=== PATIENT | female | born 1955 | race Caucasian/White ===

== ENCOUNTER → 2016-10-10 | Outpatient (CLI) | payer OTHER | LOC: FIMAGING 15:17 | PROVIDERS: ATTEND Orthopaedic Surgery | DX: M25.562 Pain in left knee (principal); M76.52 Patellar tendinitis, left knee; M25.462 Effusion, left knee ==

== ENCOUNTER → 2017-01-20 | Outpatient (CLI) | payer OTHER | LOC: FIMAGING 12:58 | PROVIDERS: ATTEND Family Medicine | DX: Z12.31 Encounter for screening mammogram for malignant neoplasm of breast (principal) | CPT/HCPCS: G0202 ==

== ENCOUNTER → 2017-03-09 | Outpatient (CLI) | payer OTHER | LOC: FIMAGING 08:09 | PROVIDERS: ATTEND Orthopaedic Surgery | DX: M17.9 Osteoarthritis of knee, unspecified (principal); M22.42 Chondromalacia patellae, left knee; M76.52 Patellar tendinitis, left knee ==

== ENCOUNTER 2017-04-10 06:00 | Day surgery (SDC) | payer OTHER ==
[~2017-04-10 06:00] MED LIST: ceFAZolin 2 GM/DEXTROSE 100 ML IV ONE
[2017-04-10] MEDS ORDERED: LR 1,000 ML IV ONE (06:18)
[2017-04-10] MEDS ORDERED: LIDOCAINE 1% 2 ML INJ ID PRN (06:18)
[2017-04-10] MEDS ORDERED: ceFAZolin 2 GM in D5W 100 ML IV ONE (06:30)
--- NOTE | 2017-04-10 06:41 | PDANEPAE ---
ANE History of Present Illness 61 yo female for knee arthroscopy. ANE Past Medical History - Cardiovascular History Hx Hypertension: No Hx Arrhythmias: No Hx Chest Pain: No Hx Coronary Artery / Peripheral Vascular Disease: No Hx CHF / Valvular Disease: No Hx Palpitations: No - Pulmonary History Hx COPD: No Hx Asthma/Reactive Airway Disease: No Hx Recent Upper Respiratory Infection: No Hx Oxygen in Use at Home: No Hx Sleep Apnea: No Sleep Apnea Screening Result - Last Documented: Negative - Neurologic History Hx Cerebrovascular Accident: No Hx Seizures: No Hx Dementia: No - Endocrine History Hx Diabetes: No Hypothyroid: No Obesity: no - Renal History Hx Renal Disorders: No - Liver History Hx Hepatic Disorders: No - Neurological & Psychiatric Hx Hx Neurological and Psychiatric Disorders: No - Cancer History Hx Cancer: No - Congenital Disorder History Hx Congenital Disorders: No - GI History Hx Gastrointestinal Disorders: No - Other Health History Other Health History: NONE - Chronic Pain History Chronic Pain: No - Surgical History Prior Surgeries: NONE ANE Review of Systems Review of systems is: negative Review of Systems: - Exercise capacity METS (RN): 4 METS - Systems Constitutional: Reports: no symptoms Cardiac: Reports: no symptoms Respiratory: Reports: no symptoms ANE Patient History - Allergies Allergies/Adverse Reactions: No Known Allergies Allergy (Verified 04/04/17 11:46) - Home Medications Home medications: home medication list seen and reviewed Home Medications: Estrogel 04/10/17 [Last Taken 04/03/17] Fish Oil 1,000 mg Capsule DAILY 04/10/17 [Last Taken 04/03/17] Progesterone,Micronized [Prometrium] 100 mg PO DAILY 04/10/17 [Last Taken ] - NPO status NPO Status: no food or drink >8 hours - Anes Hx Anes Hx: no prior problems - Smoking Hx Smoking Status: Never smoked Marijuana use: No - Alcohol Use Alcohol Use: Rarely (4/week) - Family Anes Hx Family Anes Hx: neg - N/A Family Hx Anesthesia Complications: NONE ANE Labs/Vital Signs - Vital Signs Vital Signs: reviewed preoperatively; see RN documention for details Height: 160.02 cm Weight: 65.771 kg ANE Physical Exam - Airway Neck exam: FROM Mallampati Score: Class 2 Mouth exam: normal dental/mouth exam - Pulmonary Pulmonary: clear to auscultation - Cardiovascular Cardiovascular: regular rate and rhythym - ASA Status ASA Status: II ANE Anesthesia Plan Anesthesia Plan: GA w LMA Urgent/Emergent Case: Anes eval completed preop but documented later for safe timely pt care (This was not an urgent/emergent case, but [employer] issues prevented documentation prior to case start. IT had to get involved to enable documebntation to be completed.)
--- NOTE | 2017-04-10 07:06 | PDHPUP ---
History & Physical Update H&P update statement: This history and physical update is based on an assessment of the patient which was completed after admission or registration (within 24 hours), but prior to the surgery/procedure. H&P update: H&P reviewed & patient examined, no change in patient's condition since H&P completed
[2017-04-10] MEDS ORDERED: BUPIVACAINE/EPI 0.5% 30 ML SDV ONE (07:35)
[2017-04-10] MEDS ORDERED: fentaNYL 100 MCG/2 ML INJ ONE ×2 (08:03→09:59)
[2017-04-10] MEDS ORDERED: LIDOCAINE 2% 5 ML SDV ONE (08:04)
[2017-04-10] MEDS ORDERED: PROPOFOL/EMULSION 500 MG/50 ML BOTTLE IV ONE (08:04)
[2017-04-10] MEDS ORDERED: DEXAMETHASONE 4 MG/ML VIAL ONE (08:04)
[2017-04-10] MEDS ORDERED: CALCIUM CHLORIDE 1 GM/10 ML INJ ONE (08:13)
[2017-04-10] MEDS ORDERED: ONDANSETRON 4 MG/2 ML VIAL ONE (08:42)
[2017-04-10] MEDS ORDERED: KETOROLAC 30 MG/1 ML SDV ONE (08:59)
[2017-04-10] MEDS ORDERED: HYDROCODONE/APAP 5/325 TAB PO PRN (09:17)
[2017-04-10] MEDS ORDERED: LR 500 ML IV PRN (09:17)
[2017-04-10] MEDS ORDERED: PROMETHAZINE HCL 25 MG/ML INJ IVP PRN (09:17)
[2017-04-10] MEDS ORDERED: NALOXONE HCL 0.4 MG/ML INJ IVP PRN (09:17)
[2017-04-10] MEDS ORDERED: ALBUTEROL 3 ML DEYVIAL IH PRN (09:17)
[2017-04-10] MEDS ORDERED: ACETAMINOPHEN 500 MG TAB PO PRN (09:17)
[2017-04-10] MEDS ORDERED: ONDANSETRON 4 MG/2 ML VIAL IVP PRN (09:47)
[2017-04-10] MEDS ORDERED: ONDANSETRON DISINTEGRATING 4 MG TAB PO PRN (09:47)
[2017-04-10] MEDS ORDERED: OXYCODONE/APAP 5/325 TAB PO PRN (09:47)
--- NOTE | 2017-04-10 09:50 | POSTOPPROG ---
Post Op Note Date of Operation: 04/10/17 Surgeon: Paula Tan Business Administrator: Jaimie Nolen Anesthesiologist: Dr. Rand Anesthesia: GET(General Endotracheal) Pre-op Diagnosis: left knee pain Post-op Diagnosis: left knee pain Indication: left knee pain Procedure: left knee arthroscopy, debridement, patellar tendon debridement, PRP inject Inf/Abcess present in the surg proc area at time of surgery?: No EBL: Minimal Complications: none
--- NOTE | 2017-04-10 09:51 | SOAPPROG ---
SOAP Progress Note Assessment/Plan: Assessment/Plan: 61y/o female s/p left knee arthroscopy, debridement, PRP injection - stable and doing well - orders as written - home when PACU criteria met - call with issues or concerns 04/10/17 09:50 Subjective: Minimal pain, doing well Objective: Vital Signs Temp Pulse Resp BP Pulse Ox 36.4 C 67 16 116/80 97 04/10/17 06:30 04/10/17 06:30 04/10/17 06:30 04/10/17 06:30 04/10/17 06:30 NAD, waking from anesthesia VSS, EOMi, face symmetric MAEx4 incisions CDI ICD10 Worksheet Patient Problems: Problems Problem Status Onset Knee pain Acute - ICD10 Problem Qualifiers (1) Knee pain
[2017-04-10] MEDS: fentaNYL 100 MCG/2 ML INJ IVP PRN ×2 (10:02→10:17)
[2017-04-10] MEDS ORDERED: HYDROCODONE/APAP 5/325 TAB ONE ×2 (10:31→10:33)
[2017-04-10 10:53] VITALS: TEMP 96.8
[2017-04-10 11:15] VITALS: BP 129/79; PULSE 60; RESP 14; O2SAT 98
--- NOTE | 2017-04-10 11:26 | GOP ---
[f rep st] OPERATIVE REPORT DATE OF OPERATION: 04/10/2017 SURGEON: Paula Tan MD CENTER REP: Carlota Nolen, ALICIA. ANESTHESIA: General. 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 POSTOPERATIVE DIAGNOSIS: Chronic patellar tendinitis with inflammation of Hoffa fat pad and patellof emoral syndrome, left knee. PROCEDURE PERFORMED: Arthroscopy and extensive synovectomy with chondroplasty of patella and debride ment of Hoffa fat pad, arthrotomy with debridement of patellar tendon and PRP injection, left knee. FINDINGS: ESTIMATED BLOOD LOSS: Minimal. 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 The there wa s a small area of full-thickness cartilage loss. There was significant fibrillation of the articular cartilage on the inferior portion of the patella. The mid and superior portion of the patella were normal in appearance. There are also some cracks in the trochlear groove but there was good cartilag e covering of the trochlea. The medial compartment was entered and the medial meniscus was normal. The articular cartilage in the medial compartment was normal. The patient did have an old stretch in jury of the ACL with some attenuation of the fibers. There was a fair amount of the tendon which was intact. The lateral compartment was visualized and the patient had normal lateral meniscus. There was grade 2 chondromalacia of the lateral tibial plateau. Articular cartilage on the lateral femoral condyle was normal. There was significant inflammation in the Hoffa fat pad and extensive debrideme nt and synovectomy of the anterior aspect of the knee was performed. Chondroplasty of the inferior pole of the patella was also performed using the shaver and the Vapr wa nd. Once the fat pad had been adequately debrided, the instrumentation was removed from the knee and a midline incision was made extending from the inferior pole of the patella distally for 4 cm. Inci nic was carried down through the subcutaneous tissue to the patellar tendon. The peritenon was spli t in the midline and retracted and then the patellar tendon was split in the midline. Area of mucino us degeneration was found on the lateral half of the patellar tendon. A strip measuring approximatel y 4-5 mm in width was removed and the underlying fat pad was further debrided. Once the tendon was a dequately debrided, the defect in the tendon was closed using 0 Vicryl followed by 2-0 Vicryl in the peritenon. Platelet gel was injected into the defect in the patellar tendon. The subcutaneous tissu e was then closed using 2-0 Vicryl followed by 4-0 Vicryl in the skin. The portals were closed using 4-0 nylon. The patient tolerated the procedure well. There were no complications. Estimated blood loss minimal . Final sponge, needle counts were correct. The patient was transferred to the recovery room in goo d condition. SURGEON: Paula Tan MD. /[id number]/MODL
== END 2017-04-10 12:10 | disposition home or self-care (01) ==
LOC: FSGY 06:00
PROVIDERS: ATTEND Orthopaedic Surgery
DX: M22.42 Chondromalacia patellae, left knee (principal); M76.52 Patellar tendinitis, left knee; M23.8X2 Other internal derangements of left knee; M22.3X2 Other derangements of patella, left knee
CPT/HCPCS: J0690; J1100; J1885; J2405; J2704; J3010

== ENCOUNTER → 2017-11-18 | Outpatient (CLI) | payer OTHER | LOC: BMCIMAGING 10:50 | PROVIDERS: ATTEND Podiatrist Foot & Ankle Surgery | DX: M79.671 Pain in right foot (principal) ==

== ENCOUNTER 2017-12-26 07:35 | Day surgery (SDC) | payer OTHER ==
[2017-12-26] MEDS ORDERED: LR 1,000 ML IV ONE (08:00)
[2017-12-26] MEDS ORDERED: ceFAZolin 2 GM/DEXTROSE 100 ML IV ONE (08:46)
[2017-12-26] MEDS ORDERED: MIDAZOLAM 2 MG/2 ML VIAL IVP ONE (08:46)
[2017-12-26] MEDS ORDERED: BUPIVACAINE 0.25% 30 ML SDV ONE (08:51)
[2017-12-26] MEDS ORDERED: BUPIVACAINE 0.75% 10 ML SDV ONE (08:51)
[2017-12-26] MEDS ORDERED: ceFAZolin 1 GM/5 ML SYR ONE (08:52)
[2017-12-26] MEDS ORDERED: LIDOCAINE 2% 5 ML SDV ONE (08:52)
--- NOTE | 2017-12-26 09:01 | PDANEPAE ---
ANE History of Present Illness removal of ganglion cyst ANE Past Medical History - Cardiovascular History Hx Hypertension: No Hx Arrhythmias: No Hx Chest Pain: No Hx Coronary Artery / Peripheral Vascular Disease: No Hx CHF / Valvular Disease: No Hx Palpitations: No - Pulmonary History Hx COPD: No Hx Asthma/Reactive Airway Disease: No Hx Recent Upper Respiratory Infection: No Hx Oxygen in Use at Home: No Hx Sleep Apnea: No Sleep Apnea Screening Result - Last Documented: Negative - Neurologic History Hx Cerebrovascular Accident: No Hx Seizures: No Hx Dementia: No - Endocrine History Hx Diabetes: No - Renal History Hx Renal Disorders: No - Liver History Hx Hepatic Disorders: No - Neurological & Psychiatric Hx Hx Neurological and Psychiatric Disorders: No - Cancer History Hx Cancer: No - Congenital Disorder History Hx Congenital Disorders: No - GI History Hx Gastrointestinal Disorders: No - Other Health History Other Health History: NONE - Chronic Pain History Chronic Pain: No - Surgical History Prior Surgeries: L KNEE SCOPE X2 ARTHROSTOMY & ARTHROTOMY ANE Review of Systems Review of Systems: - Exercise capacity Exercise capacity: >=4 METS METS (RN): 5 METS ANE Patient History - Allergies Allergies/Adverse Reactions: No Known Allergies Allergy (Verified 04/04/17 11:46) - Home Medications Home medications: home medication list seen and reviewed Home Medications: Fish Oil 1,000 mg Capsule DAILY 04/10/17 [Last Taken 1 Week Ago ~12/19/17] Escitalopram Oxalate 12/17/17 [Last Taken 12/25/17] - NPO status NPO Status: no food or drink >8 hours NPO Since - Liquids (Date): 12/26/17 NPO Since - Liquids (Time): 01:00 NPO Since - Solids (Date): 12/25/17 NPO Since - Solids (Time): 20:30 - Anes Hx Anes Hx: no prior problems - Smoking Hx Smoking Status: Never smoked - Family Anes Hx Family Hx Anesthesia Complications: NONE ANE Labs/Vital Signs - Vital Signs Blood Pressure: 109/85 Heart Rate: 59 Respiratory Rate: 18 O2 Sat (%): 96 Height: 160.02 cm Weight: 65.771 kg ANE Physical Exam - Airway Mallampati Score: Class 2 Mouth exam: normal dental/mouth exam - Pulmonary Pulmonary: no respiratory distress - Cardiovascular Cardiovascular: regular rate and rhythym - ASA Status ASA Status: I ANE Anesthesia Plan Anesthesia Plan: GA with mask, MAC
[2017-12-26] MEDS ORDERED: PROPOFOL/EMULSION 500 MG/50 ML BOTTLE IV ONE (09:04)
[2017-12-26] MEDS ORDERED: OXYCODONE/APAP 5/325 TAB PO PRN (09:50)
[2017-12-26] MEDS ORDERED: NALOXONE HCL 0.4 MG/ML INJ IVP PRN (09:58)
[2017-12-26] MEDS ORDERED: ONDANSETRON 4 MG/2 ML VIAL IVP PRN (09:58)
[2017-12-26] MEDS ORDERED: LR 500 ML IV PRN (09:58)
[2017-12-26] MEDS ORDERED: fentaNYL 100 MCG/2 ML INJ IVP PRN (09:58)
[2017-12-26] MEDS ORDERED: ALBUTEROL 3 ML DEYVIAL IH PRN (09:58)
[2017-12-26] MEDS ORDERED: HYDROCODONE/APAP 5/325 TAB PO PRN (09:58)
--- NOTE | 2017-12-26 09:58 | POSTOPPROG ---
Post Op Note Date of Operation: 12/26/17 Surgeon: Crista Conley Anesthesiologist: Dr. Mabry Anesthesia: IV Sedation Pre-op Diagnosis: Right foot ganglion cyst Post-op Diagnosis: Right foot ganglion cyst Indication: Painful ganglion cyst right foot Procedure: Right foot excision of ganglion cyst Findings: Gelatinous fluid expressed from the ganglion cyst Inf/Abcess present in the surg proc area at time of surgery?: No Depth: Superfical (Skin SQ) EBL: PAT @225 mmHg 15 minutes Complications: None
--- NOTE | 2017-12-26 09:59 | POSTANESTH ---
Post Anesthetic Evaluation Cardiovascular Status: Normal, Stable Respiratory Status: Normal, Stable Level of Consciousness/Mental Status: Can Participate in Eval Pain Control: Adequate, Prn Tx Ordered Nausea/Vomiting Control: Adequate, Prn Tx Ordered Complications Possibly Related to Anesthesia: None Noted
--- NOTE | 2017-12-26 10:40 | GOP ---
[f rep st] OPERATIVE REPORT DATE OF OPERATION: SURGEON: Crista Conley DPM ANESTHESIA: Local with monitored anesthesia care. ANESTHESIOLOGIST: Dr. Mabry PREOPERATIVE DIAGNOSIS: Right foot ganglion cyst. POSTOPERATIVE DIAGNOSIS: Right foot ganglion cyst. PROCEDURE PERFORMED: Right foot excision of ganglion cyst. FINDINGS: Gelatinous fluid expressed from the cyst upon excision. SPECIMENS: Right foot ganglion cyst sent to Pathology. ESTIMATED BLOOD LOSS: Minimal. INDICATIONS: Painful ganglion cyst, right foot. DESCRIPTION OF PROCEDURE: Under mild sedation, the patient was brought to the operating room, and pl aced on the operating table in supine position. Following IV sedation, local anesthesia was obtained about the right foot using 5 cc of 1% lidocaine plain and 15 cc of 0.25% Marcaine plain. The foot w as then scrubbed, prepped, and draped in the usual aseptic manner. A sterile pneumatic ankle tourniq uet was placed about the right ankle. The foot was exsanguinated and tourniquet inflated to 225 mmHg . Attention was then directed over the ganglion cyst, where an incision was made from proximal to di stal. The incision was deepened through subcutaneous tissue with care taken to identify and retract all vital neural and vascular structures. All bleeders were cauterized as necessary. The cyst was i mmediately identified and dissected free of the surrounding soft tissue structures. It was found to dive deep into the capsule with a small defect in the capsule causing the cyst to form. The cyst was removed and sent to Pathology. The wound was irrigated with copious sterile saline and Ancef irriga tion. The capsule was then repaired with 3-0 Vicryl. The subcuticular layer was performed with 4-0 Monocryl, and the skin with 4-0 Prolene in a running subcuticular suture technique. Mastisol, Steri- Strips, Xeroform, 4x4 gauze, Laura, and Blaine wrap were applied. The tourniquet was deflated at 15 min utes. A prompt hyperemic response was noted to all digits of the right foot. The patient was then transferred to the recovery room with vital signs stable and vascular status int act. Following a period of postoperative monitoring, she will be discharged home. Advised to ice an d elevate her foot. She was advised to keep the dressing clean, dry, and intact. She is weightbeari ng as tolerated in the walking boot for the next few weeks. She will follow up with me in the next w grayling for wound check and dressing change. HEMOSTASIS: Pneumatic ankle tourniquet at 225 mmHg for 15 minutes. /[id number]/MODL
[2017-12-26 11:21] VITALS: BP 126/79
== END 2017-12-26 11:31 | disposition home or self-care (01) ==
LOC: FSGY 07:35
PROVIDERS: ATTEND Podiatrist Foot & Ankle Surgery
PROC: 0LBV0ZX Excision of Right Foot Tendon, Open Approach, Diagnostic (ICD-10-PCS; principal; 2017-12-26 09:00)
DX: M67.471 Ganglion, right ankle and foot (principal)
CPT/HCPCS: J0690; J2250; J2704

== ENCOUNTER → 2018-03-12 | Outpatient (CLI) | payer OTHER | LOC: FIMAGING 08:08 | PROVIDERS: ATTEND Family Medicine | DX: Z12.31 Encounter for screening mammogram for malignant neoplasm of breast (principal) ==